=== PATIENT | male | born 1945 | race Caucasian/White ===

== ENCOUNTER 2017-01-25 15:47 | Emergency (ER) | payer MEDICARE, MEDICAID ==
--- NOTE | 2017-01-25 16:50 | EDM.PDOC ---
ED HPI GENERAL MEDICAL PROBLEM - General Chief Complaint: General Stated Complaint: CHEST PAIN/ HIGH BP Time Seen by Provider: 01/25/17 16:35 Source of Information: Reports: Patient, Provider History Limitations: Reports: No Limitations - History of Present Illness INITIAL COMMENTS - FREE TEXT/NARRATIVE: 71-year-old male presented to the clinic with some pain across his upper chest over the past 24 hours. His blood pressure was 210/107 because he hasn't been taking his medications for the last 2 months. At that point they sent him over to the emergency room without any further workup. He thinks the pain is related to a fall he had 5 days ago, he was sore in his upper chest and left shoulder for the first day, seemed to improve for the next 3 or 4 days but today it's hurting again. It's painful to take a breath. He has very little pain with minimal or shallow breathing. He was on a regular dose of clonidine, Lasix, and amlodipine but stopped his medications almost a year ago. He has chronic kidney disease with a creatinine as high as 3.3. Onset: Unknown/Unsure (His chest discomfort has been present for the last 24 hours) Severity: Moderate Associated Symptoms: Reports: Chest Pain. Denies: Confusion, Fever/Chills, Malaise, Nausea/Vomiting, Shortness of Breath, Weakness - Related Data Allergies Allergy/AdvReac Type Severity Reaction Status Date / Time No Known Allergies Allergy Verified 01/25/17 16:07 Home Meds: Home Meds NK [No Known Home Meds] 01/25/17 [History] Past Medical History Cardiovascular History: Reports: Blood Clots/VTE/DVT, Hypertension - Past Surgical History GI Surgical History: Reports: Other (See Below) Other GI Surgeries/Procedures: kidney removal Social & Family History - Tobacco Use Smoking Status *Q: Current Every Day Smoker Years of Tobacco use: 50 Packs/Tins Daily: 1 - Recreational Drug Use Recreational Drug Use: No ED ROS GENERAL - Review of Systems Review Of Systems: See Below Constitutional: Denies: Fever, Chills, Malaise HEENT: Reports: No Symptoms Respiratory: Reports: Pleuritic Chest Pain. Denies: Shortness of Breath Cardiovascular: Reports: Chest Pain (Upper chest pain with breathing) GI/Abdominal: Denies: Abdominal Pain, Nausea, Vomiting Musculoskeletal: Reports: Shoulder Pain (Some mild shoulder discomfort with movement) Skin: Reports: No Symptoms Neurological: Reports: No Symptoms. Denies: Headache Psychiatric: Reports: No Symptoms ED EXAM, GENERAL - Physical Exam Exam: See Below Exam Limited By: No Limitations General Appearance: Alert, No Apparent Distress Respiratory/Chest: No Respiratory Distress, Lungs Clear, Chest Non-Tender, Other (I can reproduce his pain by having the patient take a deep breath) Cardiovascular: Regular Rate, Rhythm GI/Abdominal: Soft, Non-Tender Extremities: Normal Inspection, Pedal Edema (Patient has 1+ edema over the ankles and lower legs bilaterally, symmetric) Neurological: Alert, Oriented Psychiatric: Normal Affect, Normal Mood Skin Exam: Warm, Dry Course - Vital Signs Last Recorded V/S: Last Vital Signs Temp 99.5 F 01/25/17 16:11 Pulse 79 01/25/17 16:11 Resp 16 01/25/17 16:11 BP 201/105 H 01/25/17 17:46 Pulse Ox 100 01/25/17 16:11 - Orders/Labs/Meds Orders: Active Orders 24 hr Category Date Time Status Chest 2V [CR] Routine Exams 01/25/17 16:38 Taken Labs: Laboratory Tests 01/25/17 01/25/17 Range/Units 17:00 17:00 WBC 16.0 H (4.5-11.0) K/uL RBC 4.24 L (4.30-5.90) M/uL Hgb 12.0 (12.0-15.0) g/dL Hct 36.5 L (40.0-54.0) % MCV 86 (80-98) fL MCH 28 (27-31) pg MCHC 33 (32-36) % Plt Count 242 (150-400) K/uL Neut % (Auto) 85 H (36-66) % Lymph % (Auto) 5 L (24-44) % [place] % (Auto) 9 H (2-6) % Eos % (Auto) 0 L (2-4) % Baso % (Auto) 0 (0-1) % Sodium 136 L (140-148) mmol/L Potassium 5.8 H (3.6-5.2) mmol/L Chloride 105 (100-108) mmol/L Carbon Dioxide 20 L (21-32) mmol/L Anion Gap 16.8 H (5.0-14.0) mmol/L BUN 48 H (7-18) mg/dL Creatinine 4.0 H* (0.8-1.3) mg/dL Est Cr Clr Drug Dosing 13.58 mL/min Estimated GFR (MDRD) 15 L (>60) Glucose 103 (74-106) mg/dL Calcium 8.2 L (8.5-10.1) mg/dL Total Bilirubin 0.5 (0.2-1.0) mg/dL AST 25 (15-37) U/L ALT 35 (12-78) U/L Alkaline Phosphatase 163 H (46-116) U/L Troponin I 0.019 (0.000-0.056) ng/mL Total Protein 7.2 (6.4-8.2) g/dL Albumin 3.5 (3.4-5.0) g/dL Globulin 3.7 H (2.3-3.5) g/dL Albumin/Globulin Ratio 1.0 L (1.2-2.2) Meds: Medications Discontinued Medications Generic Name Dose Route Start Last Admin Trade Name Freq PRN Reason Stop Dose Admin Amlodipine Besylate 10 mg 01/25/17 17:36 01/25/17 17:46 Norvasc PO 01/25/17 17:37 10 mg ONETIME ONE Administration Amlodipine Besylate Confirm 01/25/17 17:44 Norvasc Administered 01/25/17 17:45 Dose 10 mg .ROUTE .STK-MED ONE Clonidine HCl 0.1 mg 01/25/17 17:36 01/25/17 17:46 Catapres PO 01/25/17 17:37 0.1 mg ONETIME ONE Administration - Re-Assessments/Exams Free Text/Narrative Re-Assessment/Exam: 01/25/17 17:57 Reviewed his clinic records, this patient has been lost to follow-up to nephrology and his primary care and stopped taking his medicines. CBC CMP and troponin were obtained, his GFR is now 15 and creatinine is 4.0. Patient was given a dose of clonidine 0.1 mg, 10 mg of amlodipine and prescriptions were written for furosemide 40 mg a day, clonidine 0.1 mg daily, and 10 mg of amlodipine daily. I discussed it may be beneficial for him to have a brief hospitalization but he refused but promised he would resume his medications and recheck within 7-10 days. A 2 view chest x-ray was obtained which showed an abnormality over the left chest but further history revealed he had a rib removed. The patient will return in 48 hours if not improving. Troponin was 0. Departure - Departure Time of Disposition: 18:15 Disposition: Home, Self-Care 01 Condition: Fair Clinical Impression: Chest pain, pleuritic, Hypertension, uncontrolled, Chronic kidney disease (CKD ) stage G4/A1, severely decreased glomerular filtration rate (GFR) between 15- 29 mL/min/1.73 square meter and albuminuria creatinine ratio less than 30 mg/g - Discharge Information Instructions: Chronic Kidney Disease, [id number], Hypertension Referrals: PCP,None [Primary Care Provider] - Forms: ED Department Discharge Care Plan Goals: It is imperative that you restart your blood pressure medications as directed. Avoid any extra salt in your diet. Return in 48 hours if the pain is not improved, and it is extremely important to recheck at the clinic to reestablish care with nephrology and your primary care within the next 1-2 weeks. - My Orders Last 24 Hours: My Active Orders 01/25/17 16:38 Chest 2V [CR] Routine - Assessment/Plan Last 24 Hours: My Active Orders 01/25/17 16:38 Chest 2V [CR] Routine
[2017-01-25] MEDS ORDERED: cloNIDine 0.1 MG Tab PO ONE (17:36)
[2017-01-25] MEDS ORDERED: amLODIPine 10 MG Tab PO ONE (17:36)
[2017-01-25] MEDS ORDERED: amLODIPine 5 MG Tab ONE (17:44)
--- NOTE | 2017-01-26 09:11 | CR ---
Chest 2V HISTORY: No Clinical Info COMPARISON: Dyspnea. FINDINGS: Hyperinflation. Cardiac size upper limits of normal. Pulmonary vessels normally distributed . No dense infiltrates or effusion. Impression: No acute pulmonary disease.
== END 2017-01-25 18:14 | disposition home or self-care (01) ==
LOC: JP.ED 15:47
DX: R07.81 Pleurodynia (principal); I12.9 Hypertensive chronic kidney disease with stage 1 through stage 4 chronic kidney disease, or unspecified chronic kidney disease; N18.9 Chronic kidney disease, unspecified; F17.210 Nicotine dependence, cigarettes, uncomplicated; Z86.718 Personal history of other venous thrombosis and embolism
CPT/HCPCS: 36415; 71020; 80053; 84484; 85025; 99285; A9270; 99284

== ENCOUNTER 2017-04-21 17:26 | Emergency (ER) | payer MEDICARE, MEDICAID ==
[2017-04-21] MEDS ORDERED: Sodium Polystyrene Sulfonate 15 GM/60 ML Susp 60 ML Bot PO ONE (18:58)
[2017-04-21] MEDS ORDERED: Sodium Chloride 0.9% 1,000 ML IV SCH (19:00)
--- NOTE | 2017-04-21 19:30 | EDM.PDOC ---
ED HPI GENERAL MEDICAL PROBLEM - General Chief Complaint: General Stated Complaint: CAME FROM DR ILLNESS Time Seen by Provider: 04/21/17 18:10 Source of Information: Reports: Patient History Limitations: Reports: No Limitations - History of Present Illness INITIAL COMMENTS - FREE TEXT/NARRATIVE: pt was sent from the clinic because he had a k of 5.6 and he had a creatnine greater than 5. The helpdesk technician wanted him to go to [facility] and start dialysis. The pt feels well. he has had a good urine output. Onset: Gradual Duration: Day(s): Location: Reports: Other (no symptoms. ) Severity: Moderate Associated Symptoms: Reports: No Other Symptoms - Related Data Allergies Allergy/AdvReac Type Severity Reaction Status Date / Time No Known Allergies Allergy Verified 04/21/17 18:23 Home Meds: Home Meds Furosemide [Furosemide] 2 tab PO DAILY 04/21/17 [History] amLODIPine Besylate [Amlodipine Besylate] 1 tab PO DAILY 04/21/17 [History] cloNIDine [Catapres] 1 tab PO BID 04/21/17 [History] Past Medical History Cardiovascular History: Reports: Blood Clots/VTE/DVT, High Cholesterol, Hypertension Genitourinary History: Reports: Chronic Renal Insuffiency, Other (See Below) Other Genitourinary History: has one kidney. Kidney disease-being followed with nephrology since 2003. Musculoskeletal History: Reports: Back Pain, Chronic, Fracture Oncologic (Cancer) History: Reports: Bladder - Past Surgical History HEENT Surgical History: Reports: Tonsillectomy Cardiovascular Surgical History: Reports: Vascular Surgery GI Surgical History: Reports: Other (See Below) Other GI Surgeries/Procedures: kidney removal Male Surgical History: Reports: Other (See Below) Other Male Surgeries/Procedures: one kidney removed. hx of bladder cancer. Social & Family History - Tobacco Use Smoking Status *Q: Light Tobacco Smoker Years of Tobacco use: 56 Packs/Tins Daily: 0.5 - Recreational Drug Use Recreational Drug Use: No ED ROS GENERAL - Review of Systems Review Of Systems: See Below Constitutional: Reports: No Symptoms HEENT: Reports: No Symptoms Respiratory: Reports: No Symptoms Cardiovascular: Reports: No Symptoms Endocrine: Reports: No Symptoms GI/Abdominal: Reports: No Symptoms : Reports: Other ( elevated k and elevated creatnine. ) Musculoskeletal: Reports: No Symptoms Skin: Reports: No Symptoms Neurological: Reports: No Symptoms Psychiatric: Reports: No Symptoms ED EXAM, GENERAL - Physical Exam Exam: See Below Free Text/Narrative:: pt is a pale appearing pt who has a very elevated creatnine greater than 5, His gfr is 11. He has a k of 5.6. The helpdesk technician wanted him transfered to [facility] but because he has to make arrangements for his dog. -- He can,t go now. he has a relative that is coming to take care of the dog and he can go next week. Exam Limited By: No Limitations General Appearance: Alert, No Apparent Distress, Anxious Ears: Normal TMs Nose: Normal Inspection Throat/Mouth: Normal Inspection Neck: Normal Inspection Respiratory/Chest: No Respiratory Distress Cardiovascular: Regular Rate, Rhythm GI/Abdominal: Soft, Non-Tender (Male) Exam: Other (history of renal insuff. ) Back Exam: Normal Inspection Extremities: Normal Inspection Neurological: Alert, Oriented, Normal Cognition Course - Vital Signs Last Recorded V/S: Last Vital Signs Temp 36.2 C 04/21/17 19:32 Pulse 69 04/21/17 18:22 Resp 18 04/21/17 19:32 BP 168/57 H 04/21/17 19:32 Pulse Ox 98 04/21/17 19:32 - Orders/Labs/Meds Labs: Laboratory Tests 04/21/17 04/21/17 04/21/17 Range/Units 18:41 19:24 19:26 WBC 10.0 (4.5-11.0) K/uL RBC 3.65 L (4.30-5.90) M/uL Hgb 10.2 L (12.0-15.0) g/dL Hct 30.2 L (40.0-54.0) % MCV 83 (80-98) fL MCH 28 (27-31) pg MCHC 34 (32-36) % Plt Count 230 (150-400) K/uL Neut % (Auto) 77 H (36-66) % Lymph % (Auto) 14 L (24-44) % [place] % (Auto) 7 H (2-6) % Eos % (Auto) 1 L (2-4) % Baso % (Auto) 0 (0-1) % Potassium 4.9 (3.6-5.2) mmol/L Urine Color Yellow Urine Appearance Clear Urine pH 6.0 (4.5-8.0) Ur Specific [place] 1.005 L (1.008-1.030) Urine Protein 30 H (NEGATIVE) mg/dL Urine Glucose (UA) Normal (NEGATIVE) mg/dL Urine Ketones Negative (NEGATIVE) mg/dL Urine Occult Blood Moderate (NEGATIVE) Urine Nitrite Negative (NEGAITVE) Urine Bilirubin Negative (NEGATIVE) Urine Urobilinogen Normal (NORMAL) mg/dL Ur Leukocyte Esterase Negative (NEGATIVE) Urine RBC 0-5 (0-5) Urine WBC 0-5 (0-5) Ur Epithelial Cells Rare Amorphous Sediment Not seen Urine Bacteria Not seen Urine Mucus Not seen Meds: Medications Discontinued Medications Generic Name Dose Route Start Last Admin Trade Name Kaitlin PRN Reason Stop Dose Admin Sodium Chloride 1,000 mls @ 500 mls/hr 04/21/17 19:00 04/21/17 19:27 Normal Saline IV 500 mls/hr ASDIRECTED CODY Administration Sodium Polystyrene Sulfonate 15 gm 04/21/17 18:58 04/21/17 19:23 Kayexalate PO 04/21/17 18:59 15 gm ONETIME ONE Administration - Re-Assessments/Exams Free Text/Narrative Re-Assessment/Exam: 04/21/17 19:31 pt was given 1 dose of kexalate--15 mg, he was given fluid. His lasix will be decreased to 1 tablet daily. Departure - Departure Time of Disposition: 19:35 Disposition: Home, Self-Care 01 Condition: Fair Clinical Impression: Hyperkalemia, Renal insufficiency - Discharge Information Instructions: Hyperkalemia, [id number], Chronic Kidney Disease Referrals: PCP,None [Primary Care Provider] - Forms: ED Department Discharge Care Plan Goals: appt with Fernandez Candida on Tuesday, low k and low protein diet, decrease lasix to 1 tab daily over the weekend. He should have labs repeated and arrangements should be made to go to [place] next week
== END 2017-04-21 20:08 | disposition home or self-care (01) ==
LOC: JP.ED 17:26
DX: E87.5 Hyperkalemia (principal); F17.210 Nicotine dependence, cigarettes, uncomplicated; I12.9 Hypertensive chronic kidney disease with stage 1 through stage 4 chronic kidney disease, or unspecified chronic kidney disease; N18.9 Chronic kidney disease, unspecified; E78.00 Pure hypercholesterolemia, unspecified; Z79.899 Other long term (current) drug therapy
CPT/HCPCS: 36415; 81001; 84132; 85025; 96360; 99285; A9270; J7040; 99283; J7030

== ENCOUNTER 2019-11-20 14:46 | Emergency (ER) | payer MEDICARE, MEDICAID ==
--- NOTE | 2019-11-20 14:55 | EDM.PDOC ---
ED HPI GENERAL MEDICAL PROBLEM - General Chief Complaint: General Stated Complaint: [facility] Time Seen by Provider: 11/20/19 14:46 Source of Information: Reports: Patient, EMS History Limitations: Reports: No Limitations - History of Present Illness INITIAL COMMENTS - FREE TEXT/NARRATIVE: 74-year-old male on chronic dialysis, has not felt well all week with generalized malaise, decreased appetite and abdominal discomfort. He missed 2 rounds of dialysis, a well check by his landlord today found him weak and probably dehydrated from not having anything to eat or drink for several days and missing dialysis. He is awake and talking, mostly complains of abdominal discomfort and weakness. No shortness of breath, he is afebrile. Mildly hypotensive. He is obviously jaundiced. He is a smoker but does not drink alcohol. Onset: Unknown/Unsure (Symptoms have been ongoing for at least 7 to 10 days) Associated Symptoms: Reports: Confusion, Weakness Treatments VALUE ANALYSIS COORDINATOR: Reports: IV/IO Abdomen Pain Score (Numeric/FACES): 7 - Related Data Allergies Allergy/AdvReac Type Severity Reaction Status Date / Time No Known Allergies Allergy Verified 04/21/17 18:23 Home Meds: Home Meds amLODIPine Besylate [Amlodipine Besylate] 1 tab PO DAILY 04/21/17 [History] lisinopriL [Lisinopril] 40 mg PO DAILY 11/20/19 [History] Past Medical History Cardiovascular History: Reports: Blood Clots/VTE/DVT, High Cholesterol, Hypertension Genitourinary History: Reports: Chronic Renal Insuffiency, Other (See Below) Other Genitourinary History: has one kidney. Kidney disease-being followed with nephrology since 2003. Musculoskeletal History: Reports: Back Pain, Chronic, Fracture Oncologic (Cancer) History: Reports: Bladder - Past Surgical History HEENT Surgical History: Reports: Tonsillectomy Cardiovascular Surgical History: Reports: Vascular Surgery GI Surgical History: Reports: Other (See Below) Other GI Surgeries/Procedures: kidney removal Male Surgical History: Reports: Other (See Below) Other Male Surgeries/Procedures: one kidney removed. hx of bladder cancer. Social & Family History - Tobacco Use Smoking Status *Q: Current Some Day Smoker Years of Tobacco use: 50 Packs/Tins Daily: 1 - Caffeine Use Caffeine Use: Reports: Coffee, Soda, Tea - Recreational Drug Use Recreational Drug Use: No ED ROS GENERAL - Review of Systems Review Of Systems: See Below Constitutional: Reports: Malaise, Decreased Appetite. Denies: Fever, Chills HEENT: Denies: Throat Pain Respiratory: Denies: Shortness of Breath, Cough Cardiovascular: Denies: Chest Pain, Palpitations GI/Abdominal: Reports: Abdominal Pain, Decreased Appetite. Denies: Nausea, Vomiting Musculoskeletal: Reports: No Symptoms Skin: Denies: Bruising, Erythema Neurological: Reports: Confusion, Weakness Psychiatric: Reports: No Symptoms ED EXAM, GENERAL - Physical Exam Exam: See Below Exam Limited By: No Limitations General Appearance: Alert, No Apparent Distress, Cachetic Eye Exam: Bilateral Eye: EOMI Throat/Mouth: Other (Appears adequately hydrated) Head: Atraumatic Neck: Supple Respiratory/Chest: Lungs Clear Cardiovascular: Regular Rate, Rhythm, Tachycardia (Or tachycardia) GI/Abdominal: Guarding (Diffuse tenderness and guarding to palpation), Tender Extremities: No: Pedal Edema, Increased Warmth Neurological: Alert, Oriented, No Motor/Sensory Deficits, Other (Diffuse weakness but no asymmetry) Psychiatric: Normal Affect, Normal Mood Skin Exam: Warm, Dry Course - Vital Signs Last Recorded V/S: Last Vital Signs Temp 98.7 F 11/20/19 15:48 Pulse 154 H 11/20/19 15:48 Resp 23 H 11/20/19 15:48 BP 123/65 11/20/19 15:48 Pulse Ox 95 11/20/19 15:48 - Orders/Labs/Meds Labs: Laboratory Tests 11/20/19 11/20/19 11/20/19 Range/Units 15:00 15:00 15:49 WBC 32.4 H* (4.5-11.0) K/uL RBC 3.07 L (4.30-5.90) M/uL Hgb 8.9 L (12.0-15.0) g/dL Hct 25.9 L (40.0-54.0) % MCV 84 (80-98) fL MCH 29 (27-31) pg MCHC 34 (32-36) % Plt Count 323 (150-400) K/uL Add Manual Diff Yes Neutrophils % (Manual) 68 H (36-66) % Band Neutrophils % 27 H (5-11) % Lymphocytes % (Manual) 1 L (24-44) % Monocytes % (Manual) 4 (2-6) % Sodium 136 L (140-148) mmol/L Potassium 5.4 H (3.6-5.2) mmol/L Chloride 96 L (100-108) mmol/L Carbon Dioxide 14 L (21-32) mmol/L Anion Gap 31.4 H (5.0-14.0) mmol/L BUN > 150 H* D (7-18) mg/dL Creatinine 15.5 H* D (0.8-1.3) mg/dL Est Cr Clr Drug Dosing 3.77 mL/min Estimated GFR (MDRD) 3 L (>60) Glucose 150 H (74-106) mg/dL Calcium 8.1 L (8.5-10.1) mg/dL Total Bilirubin 1.0 D (0.2-1.0) mg/dL AST 35 (15-37) U/L ALT 32 (12-78) U/L Alkaline Phosphatase 109 (46-116) U/L Total Protein 5.9 L (6.4-8.2) g/dL Albumin 2.0 L (3.4-5.0) g/dL Globulin 3.9 H (2.3-3.5) g/dL Albumin/Globulin Ratio 0.5 L (1.2-2.2) Lipase 143 (73-393) U/L SARS Virus RNA (PCR) Negative (NEGATIVE) Meds: Medications Discontinued Medications Generic Name Dose Route Start Last Admin Trade Name Freq PRN Reason Stop Dose Admin Sodium Chloride 1,000 mls @ 500 mls/hr 11/20/19 15:00 11/20/19 14:59 Normal Saline IV 500 mls/hr ASDIRECTED [facility] Administration - Re-Assessments/Exams Free Text/Narrative Re-Assessment/Exam: 11/20/19 15:56 IV was started and the patient was carefully hydrated with 500 cc an hour of normal saline. CBC CMP were obtained. BUN was over 150 and creatinine was 15.5, potassium 5.4. This patient needs dialysis fairly urgently, he was accepted to [facility] by Dr. Beth, emergency physician, and he will be sent by ground. Fluids will be continued at 500 cc an hour. White count was 32,000. Other than tachycardia at 148, his blood pressure stabilized, he was afebrile and O2 saturations were normal. The COVID-19 test was drawn prior to discharge at the request of the receiving hospital. 11/20/19 17:53 Patient is anemic, hemoglobin is 8.9 and just prior to he had a dark stool indicating a GI bleed. Cover test was negative. Additional information was passed on to the receiving hospital. Departure - Departure Time of Disposition: 16:37 Disposition: DC/Tfer to Other 70 Clinical Impression: Weakness generalized Renal failure Qualifiers: Renal failure chronicity: acute on chronic Acute renal failure type: unspecified Chronic kidney disease stage: on chronic dialysis Qualified Code(s): N17.9 - Acute kidney failure, unspecified; N18.9 - Chronic kidney disease, unspecified; Z99.2 - Dependence on renal dialysis Anemia Qualifiers: Anemia type: other cause GI bleed Qualifiers: GI bleed type/associated pathology: melena Qualified Code(s): K92.1 - Melena - Discharge Information Referrals: PCP,None [Primary Care Provider] - Forms: ED Department Discharge Care Plan Goals: Patient is to be urgently transferred to [facility] to be admitted for dialysis and further evaluation and hydration. Sepsis Event Note (ED) - Focused Exam Vital Signs: Vital Signs Temp Pulse Resp BP Pulse Ox 11/20/19 15:48 98.7 F 154 H 23 H 123/65 95 11/20/19 15:42 154 H 23 H 123/65 95 11/20/19 15:12 154 H 20 117/57 L 94 L 11/20/19 14:46 98.7 F 139 H 22 H 134/69 95
[2019-11-20] MEDS ORDERED: Sodium Chloride 0.9% 1,000 ML IV SCH (15:00)
== END 2019-11-20 16:37 | disposition other institution (70) ==
LOC: JP.ED 14:46
DX: K92.1 Melena (principal); D64.89 Other specified anemias; N17.9 Acute kidney failure, unspecified; I12.9 Hypertensive chronic kidney disease with stage 1 through stage 4 chronic kidney disease, or unspecified chronic kidney disease; N18.9 Chronic kidney disease, unspecified; Z99.2 Dependence on renal dialysis; F17.210 Nicotine dependence, cigarettes, uncomplicated; Z20.828 Contact with and (suspected) exposure to other viral communicable diseases; Z79.899 Other long term (current) drug therapy
CPT/HCPCS: 36415; 80053; 83690; 85025; 96360; 96361; 99285; J7030; U0002